=== PATIENT | female | born 1990 | race Caucasian/White ===

== ENCOUNTER 2018-08-10 23:18 | Emergency (ER) | payer MEDICAID ==
--- NOTE | 2018-08-10 23:40 | EDPHY ---
H & P Stated Complaint: Hx of SVT, heart racing, dizzy Time Seen by Provider: 08/10/18 23:40 HPI/ROS: HPI CHIEF COMPLAINT: Increased heart rate. HISTORY OF PRESENT ILLNESS: 28-year-old female, she has a history of tachycardia she has seen a reviewer sales for this and prescribed metoprolol but she does not take the metoprolol due to low blood pressure. She reports tonight around 11:00 a.m. She developed tachycardia very fast heart rate she thinks it was in the 180s. She began to have numbness and tingling bilateral arms, and chest heaviness. This is since resolved. Patient denies any history of DVT or PE, denies any history of cardiovascular disease. It Is noted at triage heart rate was in the 150s. I did go see and evaluate the patient at this time heart rate is currently 108. No chest pain. Past Medical History: Tachycardia. Past Surgical History: No recent surgical history Social History: Denies drugs alcohol tobacco. Family History: Noncontributory ROS REVIEW OF SYSTEMS: 10 Systems were reviewed and negative with the exception of the elements mentioned in the history of present illness. Exam Constitutional triage nursing summary reviewed, vital signs reviewed, awake/ alert. Tachycardic at triage 150s. Eyes normal conjunctivae and sclera, EOMI, PERRLA. HENT normal inspection, atraumatic, moist mucus membranes, no epistaxis, neck supple/ no meningismus, no raccoon eyes. Respiratory clear to auscultation bilaterally, normal breath sounds, no respiratory distress, no wheezing. Cardiovascular rate normal, regular rhythm, no murmur, no edema, distal pulses normal. Gastrointestinal soft, non-tender, no rebound, no guarding, normal bowel sounds, no distension, no pulsatile mass. Genitourinary no CVA tenderness. Musculoskeletal no midline vertebral tenderness, full range of motion, no calf swelling, no tenderness of extremities, no meningismus, good pulses, neurovascularly intact. Skin pink, warm, & dry, no rash, skin atraumatic. Neurologic awake, alert and oriented x 3, AAOx3, moves all 4 extremities equally, motor intact, sensory intact, CN II-XII intact, normal cerebellar, normal vision, normal speech. Psychiatric normal mood/affect. Heme/Lymph/Immune no lymphadenopathy. Differential Diagnosis: Includes but is not limited to in a particular order inappropriate tachycardia, cardiac arrhythmia, dehydration, electrolyte disturbance, SVT, WPW Medical Decision Making: Plan for this patient IV establishment IV fluid bolus , EKG, blood work, electrolytes, troponin, D-dimer, chest x-ray Re-evaluation: EKG interpretation by me on record in [facility] system. Impression time of EKG 2334, sinus tach 115 no signs of acute ischemia no signs of WPW no signs of cardiac arrhythmia. Patient's heart rate 97. Blood pressure 136/76. Pulse ox 95% on room air. Patient is resting comfortably at this time. Re-evaluation 1:46 a.m.. Patient denies any chest pain or shortness of breath. Resting comfortably. Patient's blood work is unremarkable she has a negative D-dimer, negative troponin, EKG that shows no signs of cardiac arrhythmia. Patient's heart rate is resolved with IV fluids and IV Ativan. I do recommend she follows up with her reviewer sales for palpitations. Return precautions discussed with the patient she understands return emergency room if develops chest pain, shortness of breath, fast heart rate or does not feel well. Syncope. Source: Patient - Personal History LMP (Females 10-55): IUD In Place Current Tetanus Diphtheria and Acellular Pertussis (TDAP): No - Medical/Surgical History Hx Asthma: No Hx Chronic Respiratory Disease: No Hx Diabetes: No Hx Cardiac Disease: No Hx Renal Disease: No Hx Cirrhosis: No Hx Alcoholism: No Hx HIV/AIDS: No Hx Splenectomy or Spleen Trauma: No Other PMH: hx SVT - Social History Smoking Status: Never smoked Constitutional: Initial Vital Signs Temperature (C) 36.7 C 08/10/18 23:23 Heart Rate 151 H 08/10/18 23:23 Respiratory Rate 20 08/10/18 23:23 Blood Pressure 184/91 H 08/10/18 23:23 O2 Sat (%) 97 08/10/18 23:23 O2 Delivery Mode Room Air Allergies/Adverse Reactions: No Known Allergies Allergy (Unverified 08/10/18 23:25) Home Medications: Medication Instructions Recorded Metoprolol ER-Hctz 100-12.5 mg 08/10/18 traZODone 08/10/18 Medical Decision Making - Diagnostics Imaging Results: Imaging Impressions Chest X-Ray 08/10/18 23:41 Impression: No acute findings in the chest. - Data Points Laboratory Results: Laboratory Results 08/10/18 23:30 08/10/18 23:30 08/10/18 08/10/18 08/10/18 23:55 23:30 23:30 WBC RBC Hgb Hct MCV MCH MCHC RDW Plt Count MPV Neut % (Auto) Lymph % (Auto) [place] % (Auto) Eos % (Auto) Baso % (Auto) Nucleat RBC Rel Count Absolute Neuts (auto) Absolute Lymphs (auto) Absolute Monos (auto) Absolute Eos (auto) Absolute Basos (auto) Absolute Nucleated RBC Immature Gran % Immature Gran # PT INR APTT D-Dimer Sodium 141 mEq/L mEq/L (135-145) Potassium 3.8 mEq/L mEq/L (3.3-5.0) Chloride 107 mEq/L mEq/L (97-110) Carbon Dioxide 23 mEq/l mEq/l (22-31) Anion Gap 11 mEq/L mEq/L (6-14) BUN 15 mg/dL mg/dL (7-23) Creatinine 0.8 mg/dL mg/dL (0.6-1.0) Estimated GFR > 60 Glucose 149 mg/dL H mg/dL (70-100) Calcium 9.9 mg/dL mg/dL (8.5-10.4) Magnesium 1.7 mg/dL mg/dL (1.6-2.3) Total Bilirubin 0.4 mg/dL mg/dL (0.1-1.4) Conjugated Bilirubin 0.2 mg/dL mg/dL (0.0-0.5) Unconjugated Bilirubin 0.2 mg/dL mg/dL (0.0-1.1) AST 28 IU/L IU/L (14-46) ALT 39 IU/L IU/L (9-52) Alkaline Phosphatase 122 IU/L IU/L (38-126) POC Troponin I 0.00 ng/mL ng/mL (0.00-0.08) Total Protein 7.0 g/dL g/dL (6.3-8.2) Albumin 4.5 g/dL g/dL (3.5-5.0) Beta HCG, Qual NEGATIVE 08/10/18 08/10/18 23:30 23:30 WBC 12.58 10^3/uL H 10^3/uL (3.80-9.50) RBC 5.12 10^6/uL 10^6/uL (4.18-5.33) Hgb 16.0 g/dL g/dL (12.6-16.3) Hct 45.6 % % (38.0-47.0) MCV 89.1 fL fL (81.5-99.8) MCH 31.3 pg pg (27.9-34.1) MCHC 35.1 g/dL g/dL (32.4-36.7) RDW 12.3 % % (11.5-15.2) Plt Count 399 10^3/uL 10^3/uL (150-400) MPV 9.7 fL fL (8.7-11.7) Neut % (Auto) 62.9 % % (39.3-74.2) Lymph % (Auto) 29.5 % % (15.0-45.0) [place] % (Auto) 6.0 % % (4.5-13.0) Eos % (Auto) 0.7 % % (0.6-7.6) Baso % (Auto) 0.5 % % (0.3-1.7) Nucleat RBC Rel Count 0.0 % % (0.0-0.2) Absolute Neuts (auto) 7.92 10^3/uL H 10^3/uL (1.70-6.50) Absolute Lymphs (auto) 3.71 10^3/uL H 10^3/uL (1.00-3.00) Absolute Monos (auto) 0.75 10^3/uL 10^3/uL (0.30-0.80) Absolute Eos (auto) 0.09 10^3/uL 10^3/uL (0.03-0.40) Absolute Basos (auto) 0.06 10^3/uL 10^3/uL (0.02-0.10) Absolute Nucleated RBC 0.00 10^3/uL 10^3/uL (0-0.01) Immature Gran % 0.4 % % (0.0-1.1) Immature Gran # 0.05 10^3/uL 10^3/uL (0.00-0.10) PT 12.9 SEC SEC (12.0-15.0) INR 0.95 (0.83-1.16) APTT 28.2 SEC SEC (23.0-38.0) D-Dimer < 0.27 ug/mLFEU ug/mLFEU (0.00-0.50) Sodium Potassium Chloride Carbon Dioxide Anion Gap BUN Creatinine Estimated GFR Glucose Calcium Magnesium Total Bilirubin Conjugated Bilirubin Unconjugated Bilirubin AST ALT Alkaline Phosphatase POC Troponin I Total Protein Albumin Beta HCG, Qual Medications Given: Discontinued Medications Sodium Chloride (Ns) 1,000 mls @ 0 mls/hr IV EDNOW ONE; Wide Open PRN Reason: Protocol Stop: 08/10/18 23:42 Last Admin: 08/11/18 00:00 Dose: 1,000 mls Lorazepam (Ativan Injection) 0.5 mg IVP EDNOW ONE Stop: 08/11/18 00:32 Last Admin: 08/11/18 00:33 Dose: 0.5 mg Point of Care Test Results: Chemistry 08/10/18 23:55 POC Troponin I 0.00 ng/mL ng/mL (0.00-0.08) Departure - Departure Disposition: Home, Routine, Self-Care Clinical Impression: Tachycardia, Palpitation Condition: Good Instructions: Tachycardia (ED) Additional Instructions: 1. Return emergency room if you have worsening symptoms 2. Follow up with her reviewer sales 3. Stay well-hydrated Referrals: NONE *PRIMARY CARE P,. [Primary Care Provider] - As per Instructions Radha Ferrer MD [Medical Doctor] - As per Instructions
[2018-08-10] MEDS ORDERED: NS 1,000 ML IV ONE (23:41)
[2018-08-10 23:48] LABS: PLATELET COUNT 399 10^3/uL (150-400)
[2018-08-10 23:57] LABS: INR 0.95 (0.83-1.16); PROTIME(PATIENT) 12.9 SEC (12.0-15.0)
[2018-08-11] MEDS ORDERED: LORazepam 2 MG/ML INJ IVP ONE (00:31)
[2018-08-11 01:57] VITALS: BP 108/74
--- NOTE | 2018-08-12 06:16 | CPEKG ---
Test Reason : OPEN Blood Pressure : / mmHG Vent. Rate : 115 BPM Atrial Rate : 115 BPM P-R Int : 127 ms QRS Dur : 084 ms QT Int : 311 ms P-R-T Axes : 057 053 072 degrees QTc Int : 430 ms Sinus tachycardia Atrial premature complex Confirmed by Tom Duncan ([id number]) on 08/12/2018 6:16:09 AM Referred By: Confirmed By:Tom Duncan
== END 2018-08-11 01:55 | disposition home or self-care (01) ==
DX: R00.0 Tachycardia, unspecified (principal); R00.2 Palpitations; E86.9 Volume depletion, unspecified
CPT/HCPCS: 84484-PO; 96374; J2060

== ENCOUNTER 2018-10-02 06:13 | Inpatient (IN) | payer MEDICAID ==
[2018-10-02] MEDS ORDERED: NS 1,000 ML IV ONE ×2 (06:27→09:17)
[2018-10-02] MEDS ORDERED: LORazepam 2 MG/ML INJ IVP ONE (06:27)
--- NOTE | 2018-10-02 06:30 | EDPHY ---
H & P Stated Complaint: SI wants to stabb herself and ETOH Source: Patient - Personal History LMP (Females 10-55): IUD [address] Current Tetanus/Diphtheria Vaccine: No Current Tetanus Diphtheria and Acellular Pertussis (TDAP): No - Medical/Surgical History Hx Asthma: No Hx Chronic Respiratory Disease: No Hx Diabetes: No Hx Cardiac Disease: No Hx Renal Disease: No Hx Cirrhosis: No Hx Alcoholism: No Hx HIV/AIDS: No Hx Splenectomy or Spleen Trauma: No Other PMH: hx SVT - Social History Smoking Status: Current some day smoker Time Seen by Provider: 10/02/18 06:28 HPI/ROS: HPI CHIEF COMPLAINT: Suicide ideation, depression, anxiety HISTORY OF PRESENT ILLNESS: 28-year-old female presents to the emergency room by private vehicle for suicidal ideation and worsening depression. Patient states that she has been suffering from severe depression and a large amount of anxiety recently. She states that she has been feeling very anxious more depressed more flat and is having thoughts of suicide. Her plan will be to either stab herself in the neck or cut her wrist. She does have a mental health history which includes depression, anxiety, PTSD. She has been hospitalized previously. Past Medical History: History of depression, anxiety, PTSD, SVT Past Surgical History: No recent surgery Social History: Alcohol this evening multiple shots of Tequila. Family History: ROS REVIEW OF SYSTEMS: 10 Systems were reviewed and negative with the exception of the elements mentioned in the history of present illness. Exam Constitutional tearful, flat affect, depressed triage nursing summary reviewed , vital signs reviewed, awake/alert. Tachycardic upon arrival heart rate in the 140s. Eyes normal conjunctivae and sclera, EOMI, PERRLA. HENT normal inspection, atraumatic, moist mucus membranes, no epistaxis, neck supple/ no meningismus, no raccoon eyes. Respiratory clear to auscultation bilaterally, normal breath sounds, no respiratory distress, no wheezing. Cardiovascular tachycardia, regular rhythm, no murmur, no edema, distal pulses normal. Gastrointestinal soft, non-tender, no rebound, no guarding, normal bowel sounds, no distension, no pulsatile mass. Genitourinary no CVA tenderness. Musculoskeletal no midline vertebral tenderness, full range of motion, no calf swelling, no tenderness of extremities, no meningismus, good pulses, neurovascularly intact. Skin pink, warm, & dry, no rash, skin atraumatic. Neurologic awake, alert and oriented x 3, AAOx3, moves all 4 extremities equally, motor intact, sensory intact, CN II-XII intact, normal cerebellar, normal vision, normal speech. Psychiatric flat affect, depressed Heme/Lymph/Immune no lymphadenopathy. Differential Diagnosis: Includes but is not limited to in a particular order underlying depression, anxiety, PTSD, suicidal ideation, substance abuse Medical Decision Making: Plan for this patient IV establishment with IV fluid bolus 1 mg IV Ativan for anxiety, EKG due to tachycardia basic blood work, electrolytes, alcohol level, drug screen. Re-evaluation: 0630: Patient placed on M1 hold by myself. 0700AM: Signed over to Dr. Salas 7am shift-change. EKG was performed due to tachycardia time of EKG 6:39 a.m., sinus tach 125 without any acute ischemia. Patient has a history of SVT. This is sinus rhythm. (Tom Duncan) Constitutional: Initial Vital Signs Temperature (C) 37.1 C 10/02/18 06:16 Heart Rate 149 H 10/02/18 06:16 Respiratory Rate 16 10/02/18 06:16 Blood Pressure 154/103 H 10/02/18 06:16 O2 Sat (%) 96 10/02/18 06:16 O2 Delivery Mode Room Air Allergies/Adverse Reactions: No Known Allergies Allergy (Verified 10/02/18 06:19) Home Medications: Medication Instructions Recorded NK [No Known Home Meds] 10/02/18 Medical Decision Making Other Provider: Care assumed at 6:45 a.m. For this patient presents with suicidal ideation. Noted to have initial heart rate of 149. Plan for labs and EKG, screen for psychiatric evaluation. Is on a mental health hold. 725: Labs reviewed, ethanol 221 otherwise unremarkable. Plan for evaluation when not intoxicated. 1205: Patient personally evaluated. She is mildly tachycardic during her ED stay but she tells me that her resting pulse is normally between 115 and 120 and goes up when she gets nervous or anxious. She said she had a complete evaluation including a [employer] admin Dr. Perez who works in in [place], and was told that apart from a resting tachycardia her heart was normal. 2nd EKG performed at this time. Sinus tachycardia. I think that this is likely due to a combination of anxiety and alcohol withdrawal on top of a baseline resting tachycardia which is normal for her. The patient will be transferred to [facility] for [inpatient psychiatric hospital bed] not available at this facility, in stable condition; accepting provider is Jack Manzo. EMTALA form completed. (Yasir Salas) - Data Points Laboratory Results: Laboratory Results 10/02/18 06:35 10/02/18 06:35 10/02/18 10/02/18 10/02/18 09:20 06:45 06:35 WBC RBC Hgb Hct MCV MCH MCHC RDW Plt Count MPV Neut % (Auto) Lymph % (Auto) [place] % (Auto) Eos % (Auto) Baso % (Auto) Nucleat RBC Rel Count Absolute Neuts (auto) Absolute Lymphs (auto) Absolute Monos (auto) Absolute Eos (auto) Absolute Basos (auto) Absolute Nucleated RBC Immature Gran % Immature Gran # PT 14.0 SEC SEC (12.0-15.0) INR 1.06 (0.83-1.16) Sodium Potassium Chloride Carbon Dioxide Anion Gap BUN Creatinine Estimated GFR Glucose Calcium Total Bilirubin Conjugated Bilirubin Unconjugated Bilirubin AST ALT Alkaline Phosphatase Total Protein Albumin Beta HCG, Qual NEGATIVE Salicylates Urine Opiates Screen NEGATIVE (NEGATIVE) Acetaminophen Urine Barbiturates NEGATIVE (NEGATIVE) Ur Phencyclidine Scrn NEGATIVE (NEGATIVE) Ur Amphetamine Screen NEGATIVE (NEGATIVE) U Benzodiazepines Scrn NEGATIVE (NEGATIVE) Urine Cocaine Screen NEGATIVE (NEGATIVE) U Marijuana (THC) Screen NEGATIVE (NEGATIVE) Ethyl Alcohol 10/02/18 10/02/18 06:35 06:35 WBC 8.62 10^3/uL 10^3/uL (3.80-9.50) RBC 5.05 10^6/uL 10^6/uL (4.18-5.33) Hgb 16.1 g/dL g/dL (12.6-16.3) Hct 44.9 % % (38.0-47.0) MCV 88.9 fL fL (81.5-99.8) MCH 31.9 pg pg (27.9-34.1) MCHC 35.9 g/dL g/dL (32.4-36.7) RDW 12.2 % % (11.5-15.2) Plt Count 396 10^3/uL 10^3/uL (150-400) MPV 9.2 fL fL (8.7-11.7) Neut % (Auto) 68.2 % % (39.3-74.2) Lymph % (Auto) 26.3 % % (15.0-45.0) [place] % (Auto) 4.9 % % (4.5-13.0) Eos % (Auto) 0.1 % L % (0.6-7.6) Baso % (Auto) 0.3 % % (0.3-1.7) Nucleat RBC Rel Count 0.0 % % (0.0-0.2) Absolute Neuts (auto) 5.87 10^3/uL 10^3/uL (1.70-6.50) Absolute Lymphs (auto) 2.27 10^3/uL 10^3/uL (1.00-3.00) Absolute Monos (auto) 0.42 10^3/uL 10^3/uL (0.30-0.80) Absolute Eos (auto) 0.01 10^3/uL L 10^3/uL (0.03-0.40) Absolute Basos (auto) 0.03 10^3/uL 10^3/uL (0.02-0.10) Absolute Nucleated RBC 0.00 10^3/uL 10^3/uL (0-0.01) Immature Gran % 0.2 % % (0.0-1.1) Immature Gran # 0.02 10^3/uL 10^3/uL (0.00-0.10) PT INR Sodium 146 mEq/L H mEq/L (135-145) Potassium 3.8 mEq/L mEq/L (3.5-5.2) Chloride 116 mEq/L H mEq/L (97-110) Carbon Dioxide 19 mEq/l L mEq/l (22-31) Anion Gap 11 mEq/L mEq/L (6-14) BUN 6 mg/dL L mg/dL (7-23) Creatinine 0.6 mg/dL mg/dL (0.6-1.0) Estimated GFR > 60 Glucose 111 mg/dL H mg/dL (70-100) Calcium 9.4 mg/dL mg/dL (8.5-10.4) Total Bilirubin 0.6 mg/dL mg/dL (0.1-1.4) Conjugated Bilirubin 0.4 mg/dL mg/dL (0.0-0.5) Unconjugated Bilirubin 0.2 mg/dL mg/dL (0.0-1.1) AST 20 IU/L IU/L (14-46) ALT 25 IU/L IU/L (9-52) Alkaline Phosphatase 107 IU/L IU/L (38-126) Total Protein 7.8 g/dL g/dL (6.3-8.2) Albumin 4.9 g/dL g/dL (3.5-5.0) Beta HCG, Qual Salicylates < 1.0 mg/dL L mg/dL (2.0-20.0) Urine Opiates Screen Acetaminophen < 10 mcg/mL L mcg/mL (10-30) Urine Barbiturates Ur Phencyclidine Scrn Ur Amphetamine Screen U Benzodiazepines Scrn Urine Cocaine Screen U Marijuana (THC) Screen Ethyl Alcohol 221 mg/dL H mg/dL (0-10) Medications Given: Discontinued Medications Acetaminophen (Tylenol) 650 mg PO EDNOW ONE Stop: 10/02/18 09:26 Last Admin: 10/02/18 09:27 Dose: 650 mg Sodium Chloride (Ns) 1,000 mls @ 0 mls/hr IV ONCE ONE PRN Reason: Wide Open Stop: 10/02/18 06:28 Last Admin: 10/02/18 06:38 Dose: 1,000 mls Sodium Chloride (Ns) 1,000 mls @ 0 mls/hr IV ONCE ONE; Wide Open PRN Reason: Protocol Stop: 10/02/18 09:18 Last Admin: 10/02/18 09:28 Dose: 1,000 mls Lorazepam (Ativan Injection) 1 mg IVP ONCE ONE Stop: 10/02/18 06:28 Last Admin: 10/02/18 06:38 Dose: 1 mg Lorazepam (Ativan) 1 mg PO ONCE ONE Stop: 10/02/18 09:14 Last Admin: 10/02/18 09:16 Dose: 1 mg Lorazepam (Ativan) 1 mg PO EDNOW ONE Stop: 10/02/18 11:28 Last Admin: 10/02/18 11:28 Dose: 1 mg Nicotine (Nicoderm Cq) 21 mg TD EDNOW ONE Stop: 10/02/18 09:29 Last Admin: 10/02/18 09:30 Dose: 21 mg Departure - Departure Disposition: [facility] IP Clinical Impression: Depression Qualifiers: Depression Type: unspecified Qualified Code(s): F32.9 - Major depressive disorder, single episode, unspecified Alcohol intoxication Qualifiers: Complication of substance-induced condition: uncomplicated Qualified Code(s): F10.920 - Alcohol use, unspecified with intoxication, uncomplicated Condition: Good Instructions: Alcohol Intoxication (ED), Suicide Prevention (ED) Referrals: [facility],. [Clinic] - As per Instructions
[2018-10-02 07:02] LABS: PLATELET COUNT 396 10^3/uL (150-400)
--- NOTE | 2018-10-02 07:08 | CPEKG ---
Test Reason : OPEN Blood Pressure : / mmHG Vent. Rate : 125 BPM Atrial Rate : 125 BPM P-R Int : 143 ms QRS Dur : 086 ms QT Int : 327 ms P-R-T Axes : 049 042 030 degrees QTc Int : 472 ms Sinus tachycardia Confirmed by Yasir Salas ([id number]) on 10/02/2018 7:08:19 AM Referred By: Confirmed By:Yasir Salas
[2018-10-02 07:26] LABS: INR 1.06 (0.83-1.16)
[2018-10-02] MEDS ORDERED: LORazepam 1 MG TAB PO ONE ×2 (09:13→11:27)
[2018-10-02] MEDS ORDERED: ACETAMINOPHEN 325 MG TAB PO ONE (09:25)
[2018-10-02] MEDS ORDERED: NICOTINE 21 MG/24 HR PATCH TD ONE (09:28)
--- NOTE | 2018-10-02 12:21 | CPEKG ---
Test Reason : OPEN Blood Pressure : / mmHG Vent. Rate : 142 BPM Atrial Rate : 142 BPM P-R Int : 093 ms QRS Dur : 084 ms QT Int : 367 ms P-R-T Axes : 068 046 174 degrees QTc Int : 564 ms Sinus tachycardia Prolonged QT interval Confirmed by Yasir Salas ([id number]) on 10/02/2018 12:21:26 PM Referred By: Confirmed By:Yasir Salas
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
--- NOTE | 2018-10-02 13:10 | ASMTTCLDSP ---
TLC Discharge Disposition Disposition: Answers: Admit Disposition Notes: Notes: Admit 3N. Discharge Concerns/Recommendations: Notes: In consultation with [facility] ED physician, Yasir Salas MD and on-call advanced nurse practitioner, Jack Manzo APN, both concurred that pt appears to meet 27-65 criteria requiring psychiatric hospitalization as pt appears to be at risk of harm to self due to a mental illness condition. Pt was given the 3N prohibited belongings list while in the ED. Was patient given the Answers: Yes Inpatient Behavioral Health Prohibited Belongings List while in the ED? For inpatient Jack Manzo APN admission, the following psychiatrist agreed to accept patient for admission to Behavioral Health ([facility]): Type of Hold: Answers: M1/72-hour Hold Hold initiated by: Answers: ED Physician Date Signed: 10/02/2018 01:09 PM Electronically Signed By:Ashwin King
--- NOTE | 2018-10-02 13:26 | GCON ---
DATE OF CONSULTATION: 10/02/2018 HISTORY OF PRESENT ILLNESS: The patient is a pleasant 28-year-old female with history of depression, as well as sinus tach, who presents with suicidality. She had a plan to either stab herself in the neck or cut her wrists. She has been hospitalized for suicidality before. She denies recent fever, chills, cough, sputum, nausea, vomiting, diarrhea. She has had some headach es. She has a history of sinus tach and has been evaluated by a clinical genetics laboratory chief and started on metoprol ol, which she does not take. Notable labs in the emergency department include a normal hematocrit. Labs suggest euvolemia. She i s not . There is no TSH. Tox screen is notable for an alcohol level of 221. No stimulants. REVIEW OF SYSTEMS: Complete 10-point review of systems conducted, negative, except as noted in the H PI. PAST MEDICAL HISTORY: Depression. SOCIAL HISTORY: No tobacco, intermittent alcohol. FAMILY HISTORY: Notable for heart problems. PHYSICAL EXAMINATION: VITAL SIGNS: Temperature 37.1, blood pressure 154/103, now 101/61, pulse in t he one-teens to 130s, breathing 16 times a minute, 96% on room air. GENERAL: No acute distress. HE ENT: Sclerae anicteric. Oropharynx clear. Mucous membranes are moist. NECK: Supple, without lymp hadenopathy or JVD. LUNGS: Clear to auscultation bilaterally. HEART: S1, S2. ABDOMEN: Soft, non tender, nondistended. LOWER EXTREMITIES: Without edema. Calves are nontender. SKIN: Without rash . NEUROLOGIC: Exam is nonfocal. EKG interpreted by me (there are 2 of them), show sinus tach at 125, with normal axis and intervals. There are no ischemic changes, no early repolarization, is definitely sinus. I have discussed the case with Dr. Tom Duncan. ASSESSMENT/PLAN: A 28-year-old female with suicidality and tachycardia. 1. Tachycardia. She likely has syndrome of inappropriate sinus tachycardia. I will check a TSH for completeness sake. Otherwise, would recommend no further workup. I suspect it may be situational a s well. 2. Suicidality. Management per Behavioral Health. 3. Alcohol intoxication. The patient describes intermittent alcohol use. She does not appear to be at risk for withdrawal. 4. Hypertension. This is present on admission, normalized. 5. Disposition: To [facility]. /[id number]/MODL
[2018-10-02] MEDS ORDERED: NICOTINE POLACRILEX 2 MG GUM B PRN (16:05)
[2018-10-02] MEDS ORDERED: MAG HYDROX/AL HYDROX/SIMETH 30 ML UDCUP PO PRN (16:05)
[2018-10-02] MEDS: ACETAMINOPHEN 325 MG TAB PO PRN (16:28)
[2018-10-02] MEDS: LORazepam 1 MG TAB PO PRN ×2 (16:29→21:55)
[2018-10-03] MEDS: ACETAMINOPHEN 325 MG TAB PO PRN ×3 (05:41→19:56)
[2018-10-03] MEDS: LORazepam 1 MG TAB PO PRN ×3 (05:41→21:25)
--- NOTE | 2018-10-03 06:21 | ASMTBHMTP ---
Master Treatment Plan Master Treatment Plan Answers: Depressed Mood with for: Suicidal Ideation Date: 10/02/2018 Diagnosis on Admission: Major Depression Disorder, Recurrent, Severe 296.33 (F33.2) Expected length of stay: 3-5 days Reason for admission: Notes: Per Report: Pt is a 28 yo, single, not employed, female with reported history of ADD, depression and anxiety, initially self-presented to [facility] ED on a voluntary basis for above chief complaint and was placed on an M1 hold by ED provider which noted: Patient here with suicidal ideation, depression, substance abuse. Patient with severe depression not on meds, wants to kill herself. Pt reported having learning challenges as a young child and later formally diagnosed as ADD during high school and had been tried on Ritalin, Vyvanse, and Adderall. She has not been on any of those medications for a few years. She reported the initial onset of depression beginning around the age of 16. She reported last feeling more normal was about 3 months ago. Patient's stated presenting problems: Notes: "Anxiety and Suicidal Ideations." Patient's goals for treatment: Notes: "To be stabilized and feel better...to get out of the house more and live everyday." Patient's strengths: Notes: I don't really have any Identify supports outside of hospital: Notes: my live-in boyfriend Discharge criteria: Notes: Suicidal Ideation will resolve and patient will have a plan to safely manage recurrent suicidal ideation. Initial disposition plan/considerations: Notes: Return to my apartment and start therapy. Master Treatment Plan Required Signatures Psychiatrist signature: Answers: Psychiatrist: RN on-shift signature: Answers: RN: Patient signature: Answers: Patient: Date Signed: 10/03/2018 06:20 AM Electronically Signed By:Devan Garcia
[2018-10-03] MEDS: FLUoxetine 20 MG CAP PO SCH (08:30)
[2018-10-03] MEDS ORDERED: MAGNESIUM HYDROXIDE 30 ML UDCUP PO SCH (09:00)
[2018-10-03] MEDS ORDERED: MAGNESIUM HYDROXIDE 30 ML UDCUP PO PRN (09:21)
[2018-10-03] MEDS: NICOTINE 21 MG/24 HR PATCH TD SCH (09:48)
--- NOTE | 2018-10-03 10:36 | PDMN ---
Medical Necessity Medical necessity: Pt meets IP criteria as of 10/02/18 per and [facility] B-[id number] ( major depressive disorder, adult: IP); los > 2 mn for suicidality, pt on M1 hold.
--- NOTE | 2018-10-03 12:48 | ASMTBHDC ---
Notes Note: Notes: CC was able to confirm client's tentative out-patient appt with [facility] (date can be changed). Follow up with: [facility]: [facility] [address] [place] [address] [facility] October 09 (10/09/18) at 2:30pm with [facility] (check in on second floor of the above location). Date Signed: 10/03/2018 12:47 PM Electronically Signed By:Devan Garcia
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
[2018-10-03] MEDS ORDERED: LOPERAMIDE HCL 2 MG CAP PO PRN (18:10)
[2018-10-03] MEDS ORDERED: LOPERAMIDE HCL 2 MG CAP PO ONE (18:15)
[2018-10-04] MEDS: ACETAMINOPHEN 325 MG TAB PO PRN ×4 (01:48→20:55)
[2018-10-04] MEDS: LORazepam 1 MG TAB PO PRN ×2 (03:20→10:31)
[2018-10-04] MEDS: FLUoxetine 20 MG CAP PO SCH (07:35)
[2018-10-04] MEDS: NICOTINE 21 MG/24 HR PATCH TD SCH (07:36)
--- NOTE | 2018-10-04 07:51 | SOAPPROG ---
SOAP Progress Note Assessment/Plan: Assessment: Major Depressive Disorder, Severe, with Anxious Distress. Alcohol Use Disorder , Severe. Improvement noted. (see subjective/objective note). Patient could benefit from continued inpatient hospitalization for crisis stabilization, safety, and medication evaluation. Consider discharge tomorrow if patient is stable and has a safe discharge plan. Plan: 1. Psychotropic medications: After reviewing options, risks, and benefits patient agrees to continue current medications. No medication changes at this time as more time is needed to determine ongoing tolerability and efficacy. Plan is to continue to observe patient for response and side effects from medications, and ongoing monitoring and evaluation. 2. Review with patient informed consent and recommendations for psychotropic medication treatment listed below 3. Labs: no additional labs at this time 4. Therapy: continue milieu and group therapy 5. Further investigation including gathering information from patients relatives and review of past case records to inform treatment plan. 6. Safety/Wellness plan and follow-up outpatient appointments to be established prior to discharge. Next steps are for patient to meet with career guidance technician to plan a safe discharge plan and establish outpatient services for ongoing treatment. 7. Confer with inpatient treatment team regarding treatment plan. 8. Psychosocial stressors addressed through telehealth case manager 9. Legal status: M1 10. Consider discharge on if patient is in stable condition, safe, and has a safe discharge plan. 11. Substance abuse interventions: alcohol PSYCHOTROPIC MEDICATION TREATMENT INFORMED CONSENT and RECOMMENDATIONS: Review nature of condition, diagnosis, and prognosis. Review nature and purpose of psychotropic medication treatment. Review type of psychotropic medications being ordered. Review risk and benefits of psychotropic medication treatment. Review probable length of time patient will need to take medications. Review risk and benefits of not undergoing psychotropic medication treatment. Review alternative treatments to psychotropic medications. Review psychotropic medications contraindications, drug-drug interactions, side effects, and importance of reporting any side effects to a psychiatric provider or nurse during inpatient hospitalization, and upon discharge to patients psychiatric outpatient provider, primary care provider, or other health career manager. Review importance of asking a nurse, psychiatric provider, or primary care provider any questions or problems concerning the psychotropic medications. Verify patient understands the information that has been provided, and understands, accepts, and agrees to psychotropic medications. Review patients safety plan and importance of patient to report to staff while hospitalized if patient is ever a danger to self/others, or unable to care for self, and upon discharge, the importance for patient to contact [facility] or 911, or go to the nearest emergency room, if patient is ever a danger to self/others, or unable to care for self. Recommend that upon discharge patient establish medication management treatment with a psychiatric provider, establishes routine therapy appointments, and follow-up with primary care provider. Verify patient understands and agrees to these recommendations. 10/04/18 07:50 Subjective: Following up with patient for evaluation of depression, anxiety, and safety. Patient reports, "Feeing a lot better, not as anxious." Patient expresses the following psychiatric symptoms a little anxious. Patient reports taking medications as prescribed, and describes response to medications as fair. Patient does not report undesirable side effects from the medications, and agrees to continue current medications. Patient describes getting 8 hours of sleep, and reports feeling rested. Objective: Vital Signs Temp Pulse Resp BP Pulse Ox 36.8 C 77 14 134/71 H 98 10/04/18 06:00 10/04/18 06:00 10/04/18 06:00 10/04/18 06:00 10/04/18 06:00 PT 14.0 SEC (12.0-15.0) 10/02/18 06:45 INR 1.06 (0.83-1.16) 10/02/18 06:45 NURSING REPORT: Consulted with nursing for update on patients progress in treatment. Nurses report patient is engaged in treatment, is attending groups, slept 8 hours, expresses the following psychiatric symptoms: anxious, exhibits the following psychiatric symptoms: none, is eating all meals, is agreeable to medications and taking as prescribed with no report of side effects, with no s/ s of EPS/akathisia, and denies SI/HI, denies A/V hallucinations, and denies delusions. MSE: The patient presents casually dressed, with good hygiene, and looks stated age. Patient is sitting, posture is upright, and position is relaxed. Patient appears awake, alert, and responds appropriately and reasonably during interview. Patient is engaged, relates well to interviewer, and emotional facial expression is appropriate to situation and changes appropriately with topic. Patient is cooperative, makes comfortable eye contact, and movements are voluntary, deliberate, coordinated, and smooth and even with no inappropriate movements. Patient makes laryngeal sounds effortlessly and shares conversation appropriately; pace of conversation is appropriate, and stream of talking is fluent; articulation is clear and understandable; word choice is effortless and appropriate for education level; completes sentences, occasionally pausing to think; rate and volume are appropriate for interview and setting. Patient reports mood as anxious. Patients affect is stable with full variable range, congruent with mood, and appropriate to speech and circumstances. Patient has linear and logical thinking, with no loose associations, tangential thought, thought blocking, concrete thinking, or any other signs of formal thought disorder. Patient denies suicidal and homicidal ideation, and denies hallucinations and delusions. Patient appears to be a reliable historian with sound judgement and good insight into current condition. Patient has no apparent dysfunction in recent or remote memory noted , and no evidence of gross cognitive dysfunction noted at any point during the interview. SUBSTANCE ABUSE BRIEF INTERVENTION: Brief intervention regarding the risks of alcohol abuse is provided to patient with goal to reduce the risk of harm that could result from the continued use of alcohol, with the general aim to investigate the problem, raise awareness of problem, develop a solution with the patient, recommend a specific change or activity, and motivate the patient toward change. Assess substance abuse behavior and give supportive advice about harm reduction, recommend a reduction in hazardous/at-risk consumption patterns, and facilitate referrals for additional specialized treatment with healthcare administrator. Intermediate goal is for the patient to quit and attend outpatient substance abuse treatment. Intervention focus on intermediate goals to allow for more immediate success in the treatment process to keep the patient motivated. Review following with patient: Alcohol/Binge Drinking Risks : Short-term: injuries, violence, alcohol poisoning, risky sexual behaviors. Long-term: high blood pressure, stroke, liver disease, digestive problems, cancer, learning and memory problems, depression and anxiety, social problems, and alcohol dependence. OUTPATIENT SUBSTANCE ABUSE TREATMENT: Patient referred to outpatient provider and treatment for continued treatment related to substance abuse. - Time Spent With Patient Time Spent With Patient: 15 minutes, met with patient individually. - Pending Discharge Pending Discharge Within 24 Hours: Yes Pending Discharge Within 48 Hours: No Pending Discharge Date: 10/05/18 Pending Discharge Time: 11:00 ICD10 Worksheet Patient Problems: Problems Problem Status Onset Alcohol intoxication Acute Depression Acute
[2018-10-04] MEDS: IBUPROFEN 600 MG TAB PO PRN ×2 (10:30→20:54)
[2018-10-04] MEDS ORDERED: LORazepam 1 MG TAB PO PRN (11:01)
--- NOTE | 2018-10-04 13:25 | ASMTCMCOM ---
CM Note CM Note Notes: Client participated in treatment team rounds today. Client appears alert, affect appropriate towards situation Client is projected to discharge tomorrow and has a follow up appts on Monday 10/09 with [facility]. Date Signed: 10/04/2018 01:25 PM Electronically Signed By:Devan Garcia
[2018-10-04] MEDS ORDERED: LORazepam 0.5 MG TAB PO PRN ×2 (14:30→15:26)
[2018-10-05] MEDS: NICOTINE 21 MG/24 HR PATCH TD SCH (06:29)
[2018-10-05] MEDS: ACETAMINOPHEN 325 MG TAB PO PRN (06:29)
[2018-10-05 06:53] VITALS: BP 122/61
[2018-10-05] MEDS: FLUoxetine 20 MG CAP PO SCH (08:21)
[2018-10-05] MEDS: IBUPROFEN 600 MG TAB PO PRN (09:39)
--- NOTE | 2018-10-05 12:25 | BDS ---
REASON FOR ADMISSION: From the ED note dated 10/02/2018, patient presented to the emergency room by private vehicle for suicidal ideation and worsening depression. Patient reported a plan to either stab herself in the neck or cut her wrist. The patient was admitted involuntarily on an M1 hold due to being a danger to herself. Patient was admitted for safety, crisis stabilization, and medication evaluation. ADMITTING DIAGNOSES: 1. Major depressive disorder, severe, with anxious distress. 2. Alcohol use disorder, severe. 3. Nicotine dependence. ADMISSION PHYSICAL EXAM: Patient was seen for Internal Medicine consultation on 10/02/2018, for medical clearance for inpatient psychiatric hospitalization and treatment. Patient was medically cleared for inpatient psychiatric hospitalization and treatment. For further details, please refer to consultation note dated 10/02/2018. ADMISSION LABS: 1. CBC within normal limits, except eosinophils were low at 0.1, absolute eosinophils were low at 0.01. 2. Coagulation: PT and INR within normal limits. 3. BMP within normal limits, except sodium was elevated at 146, chloride was elevated at 116, carbon dioxide was low at 19, BUN was low at 6, and glucose was elevated at 111. 4. Hemoglobin A1c 5.0, and within normal limits. 5. Liver function within normal limits. 6. Lipid panel within normal limits, except LDL cholesterol calculated was low at 47, non-HDL cholesterol was low at 67, HDL cholesterol was elevated at 81, LDL/HDL ratio was low at 0.59. 7. TSH within normal limits at 1.030. 8. Beta HCG qualitative test negative. 9. Toxicology screen negative for all substances screened. Ethyl alcohol level was 221. MAJOR PROCEDURES/TESTS: 1. Electrocardiogram: QTc interval prolonged at 564 msec, and sinus tachycardia. 2. EKG performed on 10/02/2018 at 0639: Sinus tachycardia and QTc interval was 472 msec. 3. EKG repeated on 10/02/2018, at 1214: QTc interval was 564 msec, so prolonged QT interval and sinus tachycardia. HOSPITAL COURSE: The most prominent symptoms and behaviors while patient was here were reports of severe anxiety and depression. Treatment modalities utilized were milieu and group therapy. After reviewing options, risks, and benefits of psychotropic medications patient agreed to trial of Prozac 20 mg po QD. Patient has improved considerably with no signs of psychiatric symptoms and no psychiatric symptoms expressed at time of discharge. Patient reports she has improved since admission, states to be in stable condition, feels safe to discharge, and she contracts for safety. Patient's response to treatment was good. There were no adverse or unexpected results of treatment. Patient was safe throughout her stay, active in treatment, engaged in groups, and was appropriate with staff and other patients. Patient met with the treatment team prior to discharge to assess readiness to discharge and review discharge plan the treatment team consensus is the patient is in stable condition, has a safe discharge plan, and is ready to discharge today. CONDITION AT DISCHARGE: Patient is in stable condition and is no longer a danger to self or others, and is not gravely disabled due to mental illness. Patient is no longer in need of inpatient level of care, and can be safely and effectively treated within the community. The patients level of risk at time of discharge is low. MSE: The patient is casually dressed and with good hygiene , and looks stated age. Patient is sitting, posture is upright, and position is relaxed. Patient appears awake, alert, and responds appropriately and reasonably during interview. Patient is engaged, relates well to interviewer, and emotional facial expression is appropriate to situation and changes appropriately with topic. Patient is cooperative, makes comfortable eye contact , and movements are voluntary, deliberate, coordinated, and smooth and even with no inappropriate movements. Patient makes laryngeal sounds effortlessly and shares conversation appropriately; pace of conversation is appropriate, and stream of talking is fluent; articulation is clear and understandable; word choice is effortless and appropriate for education level; completes sentences, occasionally pausing to think; rate and volume are appropriate for interview and setting. Patient reports mood as euthymic. Patients affect is stable with full variable range, congruent with mood, and appropriate to speech and circumstances. Patient has linear and logical thinking, with no loose associations, tangential thought, thought blocking, concrete thinking, or any other signs of formal thought disorder. Patient denies suicidal and homicidal ideation, and denies hallucinations and delusions. Patient appears to be a reliable historian with sound judgement and good insight into current condition. Patient has no apparent dysfunction in recent or remote memory noted , and no evidence of gross cognitive dysfunction noted at any point during the interview. DISCHARGE DIAGNOSES: 1. Major depressive disorder, severe, with anxious distress. 2. Alcohol use disorder, severe. 3. Nicotine dependence. CURRENT MEDICATIONS: After reviewing options, risks, and benefits with the patient, patient agrees to continue: 1. Prozac 20 mg po QD. Patient requests prescription for this medication at the time of discharge. Prescription for 30 days are provided. Prescription is reviewed with patient at time of discharge to ensure accuracy and patient understanding. DISPOSITION: Patient left hospital independently and voluntarily with her boyfriend and plans to return to live with her boyfriend in [place], [place]. FOLLOWUP: care team coordinator scheduler reports the appropriate outpatient follow-up services have been established and outpatient appointments have been scheduled. The patient received written instructions with times and dates of outpatient follow-up appointments. The following follow-up recommendations were provided to the patient at discharge: Continue psychotropic medications as prescribed and attend appointments as scheduled. Report any side effects to a psychiatric outpatient provider, a primary care provider, or other health child care supervisor. Address any questions or problems concerning the psychotropic medications with a psychiatric outpatient provider, a primary care provider, or other health child care supervisor. Contact [facility] or [facility], or go to the nearest emergency room, if you are ever a danger to yourself/others, or unable to care for yourself. As soon as possible, establish a routine medication management treatment with a psychiatric provider, establish routine therapy appointments, and follow-up with a primary care provider. SUBSTANCE ABUSE BRIEF INTERVENTION: Brief intervention regarding the risks of alcohol abuse is provided to patient with goal to reduce the risk of harm that could result from the continued use of alcohol, with the general aim to investigate the problem, raise awareness of problem, develop a solution with the patient, recommend a specific change or activity, and motivate the patient toward change. Assess substance abuse behavior and give supportive advice about harm reduction, recommend a reduction in hazardous/at-risk consumption patterns, and facilitate referrals for additional specialized treatment with manager home healthcare. Intermediate goal is for the patient to quit and attend outpatient substance abuse treatment. Intervention focus on intermediate goals to allow for more immediate success in the treatment process to keep the patient motivated. Review following with patient: Alcohol/Binge Drinking risks : short-term: injuries, violence, alcohol poisoning, risky sexual behaviors. Long-term: high blood pressure, stroke, liver disease, digestive problems, cancer, learning and memory problems, depression and anxiety, social problems, and alcohol dependence. OUTPATIENT SUBSTANCE ABUSE TREATMENT: Patient referred to outpatient provider and treatment for continued treatment related to substance abuse. LEGAL COURSE: Patient was admitted on an M1 hold for involuntary inpatient psychiatric hospitalization. Patient became voluntary during her stay and patient discharged today independently and voluntarily. ATTITUDE AT TIME OF DISCHARGE: The patients attitude was positive at time of discharge, and patient reports looking forward to discharging today. The patient reports she feels safe to discharge, is no longer a danger to herself or others, is in stable condition, and contracts for safety. Patient states she will continue medications as prescribed, and establish medication management treatment with an outpatient provider after discharge. Patient reports she understands the information that has been provided to her, and she understands, accepts, and agrees to psychotropic medications. Patient describes internal protective factors as the coping skills she has learned while hospitalized here, and she plans to continue to practice these coping skills after discharge. LABORATORY/RADIOLOGY STUDIES: There were no pending labs or studies at time. ADVANCE DIRECTIVES: There were no advance directives on file, and patient was full code during this hospitalization. The following psychotropic medication treatment informed consent and recommendations were provided to the patient at time of discharge. Patient reports she understands, accepts, and agrees to the information that has been provided. PSYCHOTROPIC MEDICATION TREATMENT INFORMED CONSENT and RECOMMENDATIONS: Review nature of condition, diagnosis, and prognosis. Review nature and purpose of psychotropic medication treatment. Review type of psychotropic medications being prescribed. Review risk and benefits of psychotropic medication treatment. Review probable length of time will need to take medications. Review risk and benefits of not undergoing psychotropic medication treatment. Review alternative treatments to psychotropic medications. Review psychotropic medications contraindications, side effects, and importance of reporting any side effects to a psychiatric provider, primary care provider, or other health child care supervisor. Review importance of her asking a psychiatric provider or primary care provider any questions or problems concerning the psychotropic medications. Review importance of reporting to a psychiatric provider, primary care provider, or other health child care supervisor if she plans to or becomes . Review safety plan and the importance to contact [facility] or [facility] , or go to the nearest emergency room, if ever a danger to yourself/others, or unable to care for yourself. Recommend upon discharge to establish routine medication management treatment with a psychiatric provider, establish routine therapy appointments, and follow-up with a primary care provider. Verify patient understands, accepts, and agrees to the information that has been provided. /[id number]/MODL MTDD
== END 2018-10-05 11:38 | disposition home or self-care (01) | DRG 751 ==
LOC: BBEH 14:45
PROVIDERS: ADMIT Registered Nurse; ATTEND Registered Nurse
DX: F33.2 Major depressive disorder, recurrent severe without psychotic features (principal); R45.851 Suicidal ideations; F41.8 Other specified anxiety disorders; F40.00 Agoraphobia, unspecified; F43.10 Post-traumatic stress disorder, unspecified; F10.929 Alcohol use, unspecified with intoxication, unspecified; F17.210 Nicotine dependence, cigarettes, uncomplicated
CPT/HCPCS: 80305; 96374; G0480; J2060

== ENCOUNTER 2018-10-27 17:26 | Emergency (ER) | payer MEDICAID ==
[2018-10-27] MEDS ORDERED: NS 1,000 ML IV ONE ×2 (17:38→19:30)
[2018-10-27] MEDS ORDERED: LORazepam 2 MG/ML INJ IVP ONE ×2 (17:38→19:30)
--- NOTE | 2018-10-27 17:42 | EDPHY ---
H & P Time Seen by Provider: 10/27/18 17:30 HPI/ROS: CHIEF COMPLAINT: Palpitations HISTORY OF PRESENT ILLNESS: The patient is a 28-year-old female with a history of anxiety and anxiety related tachycardia. There is also questionable history of SVT. She states that at one point they are going to give her adenosine but and up treating her with Ativan and fluids instead. She states that she was drinking last night which tends to exacerbate her anxiety the next day. She does have a history previously of alcohol withdrawal but states she has not had this in several years and does not currently drink that often. She does states that her life is very stressful that she suffers from depression and was recently hospitalized for depression. She states that she does not take any medications for anxiety. No abdominal pain. No chest pain. No shortness of breath. She states that she also feels dehydrated probably from drinking yesterday and throwing up this morning. Severity: Moderate Modifying factors: Improved with calming techniques REVIEW OF SYSTEMS: Constitutional: denies: chills, fever, recent illness, recent injury EENTM: denies: blurred vision, double vision, nose congestion Respiratory: denies: cough, shortness of breath Cardiac: See HPI Gastrointestinal/Abdominal: denies: abdominal pain, diarrhea, nausea, vomiting, blood streaked stools Genitourinary: denies: dysuria, frequency, hematuria, pain Musculoskeletal: denies: joint pain, muscle pain Skin: denies: lesions, rash, jaundice, bruising Neurological: denies: headache, numbness, paresthesia, tingling, dizziness, weakness Hematologic/Lymphatic: denies: blood clots, easy bleeding, easy bruising Immunologic/allergic: denies: HIV/AIDS, transplant 10 systems reviewed and negative except as noted EXAM: GENERAL: Well-appearing, well-nourished and in no acute distress. HEAD: Atraumatic, normocephalic. EYES: Pupils equal round and reactive to light, extraocular movements intact, sclera anicteric, conjunctiva are normal. ENT: TMs normal, nares patent, oropharynx clear without exudates. Moist mucous membranes. NECK: Normal range of motion, supple without lymphadenopathy or JVD. LUNGS: Breath sounds clear to auscultation bilaterally and equal. No wheezes rales or rhonchi. HEART: Tachycardic, Regular rate and rhythm without murmurs, rubs or gallops. ABDOMEN: Soft, nontender, normoactive bowel sounds. No guarding, no rebound. No masses appreciated. BACK: No CVA tenderness, no spinal tenderness, step-offs or deformities EXTREMITIES: Normal range of motion, no pitting or edema. No clubbing or cyanosis. NEUROLOGICAL: Cranial nerves II through XII grossly intact. Normal speech, normal gait. 5/5 strength, normal movement in all extremities, normal sensation , normal reflexes PSYCH: Normal mood, normal affect. SKIN: Warm, dry, normal turgor, no visible rashes or lesions. Source: Patient, Family Exam Limitations: No limitations - Medical/Surgical History Hx Asthma: No Hx Chronic Respiratory Disease: No Hx Diabetes: No Hx Cardiac Disease: No Hx Renal Disease: No Hx Cirrhosis: No Hx Alcoholism: No Hx HIV/AIDS: No Hx Splenectomy or Spleen Trauma: No Other PMH: hx SVT - Family History Significant Family History: No pertinent family hx - Social History Smoking Status: Current some day smoker Alcohol Use: None Constitutional: Initial Vital Signs Temperature (C) 37.1 C 10/27/18 18:44 Heart Rate 155 H 10/27/18 18:44 Respiratory Rate 20 10/27/18 18:44 Blood Pressure 134/90 H 10/27/18 18:44 O2 Sat (%) 98 10/27/18 18:44 O2 Delivery Mode Room Air Allergies/Adverse Reactions: quetiapine [From Seroquel] Adverse Reaction (Verified 10/27/18 18:49) trazodone Adverse Reaction (Verified 10/27/18 18:49) Home Medications: Medication Instructions Recorded Acetaminophen [Tylenol 325mg (*)] 650 mg PO Q6H PRN tab 10/05/18 FLUoxetine [Prozac 20 MG (*)] 20 mg PO DAILY 30 Days #30 cap 10/05/18 Ibuprofen [Motrin (*)] 600 mg PO Q6HRS PRN tab 10/05/18 Loperamide HCl [Imodium 2 mg (*)] 2 mg PO Q4H PRN cap 10/05/18 LORazepam [Ativan 1 mg (RX)] 1 mg PO Q6-8PRN PRN #10 tab 10/27/18 Metoprolol Succinate Xr [Toprol Xl 25 mg PO DAILY #30 tab.sr 10/27/18 25 mg (*)] Medical Decision Making - Diagnostics EKG Interpretation: An EKG obtained and was read and documented in trace view. Please see trace view for full reading and report. Sinus rhythm, tachycardic, no acute ischemic changes ED Course/Re-evaluation: I reviewed the patient's previous EKGs at our facility. None of them reveal SVT. All of sinus rhythm and sinus tachycardia 7:30 p.m. patient states she is feeling much better. She still has mild tachycardia around 120. She is wide awake. Will treat with more Ativan and fluids and continue to observe. Remains in sinus rhythm on the monitor. 8:30 p.m. the patient is still tachycardic at 120. Even while asleep. When I ask where she feels she states she feels completely better. She denies recent fevers or infections. No nausea vomiting. No urinary symptoms. No headache. She states that she has had significant difficulty in the past controlling her anxiety and tachycardia. 9:00 p.m. after a small dose of double the patient's heart rate is now in the 90s. She feels well. Her blood pressure is stable. She tells me now that she has been prescribed metoprolol in the past but does not typically take it. She also tells me that her baseline heart rate is in the high 90s low 100s. I will give her prescription for 25 mg a day and have her follow up with Cardiology as well as her psychiatrist. She feels comfortable with this plan and declines further workup or testing. She is eager to go home. Her boyfriend will drive her. Differential Diagnosis: Partial list of the Differential diagnosis considered include but were not limited to; anxiety, SVT, atrial fibrillation and although unlikely based on the history and physical exam, I also considered dehydration, infection, acute coronary disease, PE, intracranial hemorrhage. I discussed these differential diagnoses and the plan with the patient as well as the usual and expected course. The patient understands that the diagnosis is provisional and that in medicine we are not always correct and that further workup is often warranted. Usual and customary warnings were given. All of the patient's questions were answered. The patient was instructed to return to the emergency department should the symptoms at all worsen or return, otherwise to followup with the physician as we discussed. - Data Points Medications Given: Discontinued Medications Sodium Chloride (Ns) 1,000 mls @ 0 mls/hr IV EDNOW ONE; Wide Open PRN Reason: Protocol Stop: 10/27/18 17:39 Last Admin: 10/27/18 18:40 Dose: 1,000 mls Sodium Chloride (Ns) 1,000 mls @ 0 mls/hr IV EDNOW ONE; Wide Open PRN Reason: Protocol Stop: 10/27/18 19:31 Last Admin: 10/27/18 20:14 Dose: 1,000 mls Lorazepam (Ativan Injection) 2 mg IVP EDNOW ONE Stop: 10/27/18 17:39 Last Admin: 10/27/18 18:41 Dose: 2 mg Lorazepam (Ativan Injection) 2 mg IVP EDNOW ONE Stop: 10/27/18 19:31 Last Admin: 10/27/18 20:15 Dose: 2 mg Metoprolol Succinate (Toprol Xl) 25 mg PO EDNOW ONE Stop: 10/27/18 20:39 Last Admin: 10/27/18 20:53 Dose: 25 mg Metoprolol Tartrate (Lopressor Injection) 5 mg IVP EDNOW ONE Stop: 10/27/18 20:39 Last Admin: 10/27/18 20:53 Dose: 5 mg Point of Care Test Results: Chemistry 10/27/18 17:39 POC Sodium 144 mEq/L mEq/L (135-145) POC Potassium 3.3 mEq/L mEq/L (3.3-5.0) POC Chloride 106 mEq/L mEq/L (97-110) POC Total CO2 19 mEq/L L mEq/L (22-31) POC BUN 3 mg/dL L mg/dL (7-23) POC Creatinine 0.5 mg/dL L mg/dL (0.6-1.0) POC Glucose 110 mg/dL H mg/dL (70-100) ISTAT H&H 10/27/18 17:39 POC Hgb 16.3 gm/dL gm/dL (12.6-16.3) POC Hct 48 % H % (38-47) Departure - Departure Disposition: Home, Routine, Self-Care Clinical Impression: Anxiety, Sinus tachycardia Condition: Fair Instructions: Metoprolol (By mouth), Lorazepam (By mouth), Atrial Tachycardia ( ED), Anxiety (ED) Referrals: NONE *PRIMARY CARE P,. [Primary Care Provider] - As per Instructions Lucy Stephens MD [Medical Doctor] - 2-3 days, call for appt. Radha Ferrer MD [Medical Doctor] - 3-4 days, if not improved Prescriptions: LORazepam [Ativan 1 mg (RX)] 1 mg PO Q6-8PRN PRN #10 tab PRN Reason: *Anxiety/Agitation/Insomnia Metoprolol Succinate Xr [Toprol Xl 25 mg (*)] 25 mg PO DAILY #30 tab.sr
--- NOTE | 2018-10-27 17:43 | CPEKG ---
Test Reason : OPEN Blood Pressure : / mmHG Vent. Rate : 141 BPM Atrial Rate : 140 BPM P-R Int : 085 ms QRS Dur : 088 ms QT Int : 291 ms P-R-T Axes : 037 048 003 degrees QTc Int : 446 ms Sinus tachycardia Confirmed by Beka Donis ([id number]) on 10/27/2018 5:42:48 PM Referred By: BEKA DONIS Confirmed By:Bkea Donis
[2018-10-27] MEDS ORDERED: METOPROLOL SUCCINATE XR 25 MG TAB PO ONE (20:38)
[2018-10-27] MEDS ORDERED: METOPROLOL TARTRATE 5 MG/5 ML INJ IVP ONE (20:38)
[2018-10-27 21:01] VITALS: BP 105/69
== END 2018-10-27 21:26 | disposition home or self-care (01) ==
DX: F41.9 Anxiety disorder, unspecified (principal); R00.0 Tachycardia, unspecified; E86.9 Volume depletion, unspecified
CPT/HCPCS: 82435-PO; 82565-PO; 82947-PO; 84132-PO; 84295-PO; 84520-PO; 85014-ER; 96374; J2060

== ENCOUNTER 2018-11-18 13:45 | Emergency (ER) | payer MEDICAID ==
[2018-11-18 14:21] LABS: PLATELET COUNT 386 10^3/uL (150-400)
[2018-11-18] MEDS ORDERED: NS 1,000 ML IV ONE (14:28)
[2018-11-18] MEDS ORDERED: LORazepam 2 MG/ML INJ IVP ONE (14:29)
--- NOTE | 2018-11-18 14:34 | EDPHY ---
HPI/HX/ROS/PE/MDM Narrative: CHIEF COMPLAINT: Fast heart rate HPI: The patient is a 28-year-old female with a history of anxiety and previous ED visits related to anxiety/tachycardia in the setting of recent alcohol use. The patient states that she did drink last night but denies any caffeine or drugs today. She reports feeling like her heart is racing and beating harder than normal for the last 3 hr. She denies chest pain or shortness of breath. She states this is similar to prior episodes. She states she normally takes a beta-wilder for these types of symptoms but did not because she was worried that her systolic blood pressure was too low which was approximately 100. She denies recent illness or trauma. REVIEW OF SYSTEMS: Aside from elements discussed in the HPI, a comprehensive 10-point review of systems was reviewed and is negative. PMH: Includes history of tachycardia. SOCIAL HISTORY: Denies drug abuse. Did drink alcohol last night. PHYSICAL EXAM: General:Patient is alert, in no acute distress. ENT:Eyes are normal to inspection. ENT inspection normal. Neck: Normal inspection. Full range of motion. Respiratory:No respiratory distress. Breath sounds normal bilaterally. Cardiovascular: Mildly tachycardic rate but normal rhythm. Strong peripheral pulses. Normal cap refill. Abdomen:The abdomen is nontender to palpation. There are no peritoneal signs. There are normal bowel sounds. Back: Normal to inspection. No tenderness to palpation. Skin: Normal color. No rash. Warm and dry. Extremities: Normal appearance. Full range of motion. Neuro: Oriented x3. Normal motor function. Normal sensory function. (Dimitry Aaron) 1500: Patient is signed out to me at change of shift by Dr. Aaron. Patient was given Ativan and fluids prior to my arrival. On my exam she was still tachycardic. She is chest pain-free. She denies any palpitations or shortness of breath. She states that she normally takes metoprolol for her palpitations and rapid heartbeat but she was concerned that her blood pressure was too low at home. Her initial blood pressure here was 136 systolic. GENERAL: Well-appearing, in no acute distress, alert. HEENT: Eyes normal to inspection, normal pharynx, no signs of dehydration. NECK: Normal, supple. RESPIRATORY: Clear to auscultation bilaterally, no rales, rhonchi or wheezing. CVS: Regular tachycardia, no rubs, murmurs, or gallops. ABDOMEN: Soft, nontender, nondistended, no organomegaly. BACK: Normal to inspection, no CVA tenderness. SKIN: Normal color, no rash, warm, dry. No pallor. EXTREMITIES: No pedal edema, no calf tenderness, no Homans sign or cords, no joint swelling. NEURO/PSYCH: Alert and oriented, normal mood and affect, normal motor sensory exam. When I was in the room I placed a blood pressure cuff and took a repeat pressure. 117/77. Heart rate of 110. The patient states she normally takes metoprolol to 12.5 mg. She was given this dose in the emergency department. On recheck the patient was feeling much better. Her heart rate was in the low 100. Patient requested discharge home. I discussed the risks and benefits. She will follow up with Cardiology. She felt comfortable with leaving and was given warnings prior to discharge. (Shauna Rojas) - Data Points Laboratory Results: Laboratory Results 11/18/18 14:10 11/18/18 14:10 11/18/18 11/18/18 11/18/18 14:21 14:10 14:10 WBC RBC Hgb Hct MCV MCH MCHC RDW Plt Count MPV Neut % (Auto) Lymph % (Auto) [place] % (Auto) Eos % (Auto) Baso % (Auto) Nucleat RBC Rel Count Absolute Neuts (auto) Absolute Lymphs (auto) Absolute Monos (auto) Absolute Eos (auto) Absolute Basos (auto) Absolute Nucleated RBC Immature Gran % Immature Gran # Sodium Potassium Chloride Carbon Dioxide Anion Gap BUN Creatinine Estimated GFR Glucose Calcium POC Troponin I 0.00 ng/mL ng/mL (0.00-0.08) TSH 1.560 uIU/mL uIU/mL (0.465-4.680) Beta HCG, Qual NEGATIVE 11/18/18 11/18/18 14:10 14:10 WBC 10.13 10^3/uL H 10^3/uL (3.80-9.50) RBC 4.76 10^6/uL 10^6/uL (4.18-5.33) Hgb 15.1 g/dL g/dL (12.6-16.3) Hct 42.6 % % (38.0-47.0) MCV 89.5 fL fL (81.5-99.8) MCH 31.7 pg pg (27.9-34.1) MCHC 35.4 g/dL g/dL (32.4-36.7) RDW 12.5 % % (11.5-15.2) Plt Count 386 10^3/uL 10^3/uL (150-400) MPV 9.2 fL fL (8.7-11.7) Neut % (Auto) 59.2 % % (39.3-74.2) Lymph % (Auto) 29.8 % % (15.0-45.0) [place] % (Auto) 9.8 % % (4.5-13.0) Eos % (Auto) 0.4 % L % (0.6-7.6) Baso % (Auto) 0.5 % % (0.3-1.7) Nucleat RBC Rel Count 0.0 % % (0.0-0.2) Absolute Neuts (auto) 6.00 10^3/uL 10^3/uL (1.70-6.50) Absolute Lymphs (auto) 3.02 10^3/uL H 10^3/uL (1.00-3.00) Absolute Monos (auto) 0.99 10^3/uL H 10^3/uL (0.30-0.80) Absolute Eos (auto) 0.04 10^3/uL 10^3/uL (0.03-0.40) Absolute Basos (auto) 0.05 10^3/uL 10^3/uL (0.02-0.10) Absolute Nucleated RBC 0.00 10^3/uL 10^3/uL (0-0.01) Immature Gran % 0.3 % % (0.0-1.1) Immature Gran # 0.03 10^3/uL 10^3/uL (0.00-0.10) Sodium 136 mEq/L mEq/L (135-145) Potassium 4.1 mEq/L mEq/L (3.5-5.2) Chloride 105 mEq/L mEq/L (97-110) Carbon Dioxide 19 mEq/l L mEq/l (22-31) Anion Gap 12 mEq/L mEq/L (6-14) BUN 8 mg/dL mg/dL (7-23) Creatinine 0.5 mg/dL L mg/dL (0.6-1.0) Estimated GFR > 60 Glucose 94 mg/dL mg/dL (70-100) Calcium 9.4 mg/dL mg/dL (8.5-10.4) POC Troponin I TSH Beta HCG, Qual Medications Given: Discontinued Medications Sodium Chloride (Ns) 1,000 mls @ 0 mls/hr IV EDNOW ONE; Wide Open PRN Reason: Protocol Stop: 11/18/18 14:29 Last Admin: 11/18/18 14:53 Dose: 1,000 mls Lorazepam (Ativan Injection) 1 mg IVP EDNOW ONE Stop: 11/18/18 14:30 Last Admin: 11/18/18 14:53 Dose: 1 mg Metoprolol Tartrate (Lopressor) 12.5 mg PO EDNOW ONE Stop: 11/18/18 15:29 Last Admin: 11/18/18 15:57 Dose: 12.5 mg Point of Care Test Results: Chemistry 11/18/18 14:21 POC Troponin I 0.00 ng/mL ng/mL (0.00-0.08) General Time Seen by Provider: 11/18/18 14:05 Initial Vital Signs: Initial Vital Signs Temperature (C) 36.7 C 11/18/18 13:49 Heart Rate 160 H 11/18/18 13:49 Respiratory Rate 18 11/18/18 13:49 Blood Pressure 136/96 H 11/18/18 13:49 O2 Sat (%) 97 11/18/18 13:49 O2 Delivery Mode Room Air Allergies/Adverse Reactions: quetiapine [From Seroquel] Adverse Reaction (Verified 10/27/18 18:49) trazodone Adverse Reaction (Verified 10/27/18 18:49) Home Medications: Medication Instructions Recorded Gabapentin 11/18/18 Metoprolol Succinate 11/18/18 Prozac 10 MG (*) 11/18/18 Departure - Departure Disposition: Home, Routine, Self-Care Clinical Impression: Tachycardia Condition: Good Instructions: Tachycardia (ED) Additional Instructions: Follow-up with your primary doctor within 72 hours. Return to the Emergency Department for fever, chest pain, shortness of breath, increasing pain or other worsening of condition. 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 Referrals: [facility] [Provider Group] - 2-3 days without fail
--- NOTE | 2018-11-18 14:49 | CPEKG ---
Test Reason : OPEN Blood Pressure : / mmHG Vent. Rate : 121 BPM Atrial Rate : 123 BPM P-R Int : 145 ms QRS Dur : 081 ms QT Int : 311 ms P-R-T Axes : 070 053 043 degrees QTc Int : 442 ms Sinus tachycardia Confirmed by Dimitry Aaron ([id number]) on 11/18/2018 2:48:33 PM Referred By: Dimitry Aaron Confirmed By:Dimitry Aaron
[2018-11-18] MEDS ORDERED: METOPROLOL TARTRATE 25 MG TAB PO ONE (15:28)
[2018-11-18 16:28] VITALS: BP 101/75
== END 2018-11-18 16:26 | disposition home or self-care (01) ==
DX: R00.0 Tachycardia, unspecified (principal); E86.9 Volume depletion, unspecified
CPT/HCPCS: 84484-ER; 96374; J2060

== ENCOUNTER 2018-12-14 16:30 | Emergency (ER) | payer MEDICAID ==
[2018-12-14] MEDS ORDERED: NS 1,000 ML IV ONE ×2 (17:04→18:08)
[2018-12-14] MEDS ORDERED: DIAZEPAM 5 MG/ML 1 ML SYR IVP ONE ×4 (17:05→19:11)
--- NOTE | 2018-12-14 17:10 | EDPHY ---
H & P Time Seen by Provider: 12/14/18 16:48 HPI/ROS: HPI Heart racing. 28-year-old female by private vehicle with boyfriend. This patient reports that she has had a sensation of rapid heart rate at anxiety onset about an hour and a half prior to arrival. She has had the symptoms in the past. She states that she has been under a lot of stress lately with work and her social life. She denies any associated chest pain. She does feel mildly short of breath. No other complaints. ROS: Constitutional: No fever, no chills. As above. Eyes: No discharge. No changes in vision. ENT: No sore throat. No nasal congestion or rhinorrhea. Respiratory: No cough. As above. Cardiac: No chest pain, as above. Gastrointestinal: No abdominal pain, no vomiting, no diarrhea. Genitourinary: No hematuria. No dysuria or increased frequency with urination. Musculoskeletal: No back pain. No neck pain. No myalgias or arthralgias. Skin: No rashes. Neurological: No headache. No focal weakness or altered sensation. Past medical history: Social history: Physical Exam: General Appearance: Alert, she is anxious but not in distress. This patient is responding to questions appropriately and in full sentences. This patient appears well-hydrated and well-nourished. Eyes: Pupils equal and round no pallor or injection. No lid edema, erythema or injection. Respiratory: There are no retractions, lungs are clear to auscultation with good air movement bilaterally. Cardiovascular: Regular rate and rhythm. Tachycardia. No murmur appreciated. Gastrointestinal: Abdomen is soft and nontender, no masses, bowel sounds normal. No focal tenderness at McBurney's point. No Burk sign. Neurological: Motor sensory function is grossly intact. Cranial nerves are normal. Gait is normal. Skin: Warm and dry, no rashes. Musculoskeletal: Neck is supple and nontender. Extremities are symmetrical. All joints range without pain or impingement. Psychiatric: No agitation. No depression. Database: EKG: EKG time is 4:46 p.m.; EKG shows a narrow complex sinus tachycardia with ventricular rate of 137. The DE, QRS, QT intervals are within normal limits. There are no ST-T wave changes indicative of ischemic or injury pattern. No evidence of right heart strain. Interpreted by me. Imaging: Procedures: Emergency department course: Triage vital signs reviewed. She is tachycardic and hypertensive. She she is afebrile. Vital signs are otherwise normal. IV was placed. She was placed on a personnel monitor. She was started on IV normal saline with 1 L to be given over the next hour. EKG obtained and reviewed by myself. I feel her tachycardia is most likely anxiety driven. She will be given 5 mg of IV Valium. This be repeated as needed. 5:50 p.m., the patient was re-evaluated, still tachycardic with narrow complex sinus tachycardia rate of 125 on the monitor. Blood pressure currently 111/72. She was given an additional 5 mg of IV Valium. 6:05 p.m., the patient was re-evaluated. She tells me that her resting heart rate is 105-110. She is currently managed by wood milling machine hand named Dr. Carrington Butt's up in [place]. He has had err on metoprolol but she does not tolerate this medication well secondary to low blood pressures. She thinks she has had her thyroid tested. Currently she feels more relaxed. She has had 1 L of normal saline. Her heart rate is currently in the low 120s. 6:45 p.m., the patient remains significantly tachycardic in the 120s. I am concerned about possible alcohol withdrawal given review of her previous medical history and records. She will be given an additional 5 mg of IV Valium. 7:10 p.m., patient feeling better, heart rate currently 115-120. Patient given an additional 5 mg of IV Valium. 7:50 p.m., patient re-evaluated, resting comfortably at this time. She states she feels relaxed and comfortable. Heart rate is 109-110. This is in the area of her baseline. I did discuss admission with her for observation in the hospital. She does not want to do this. She does feel comfortable going home. She will follow up with her wood milling machine hand within the next 2 days. Return to emergency department precautions were reviewed with her. All of her questions were answered. She was discharged home in good condition with her boyfriend who is driving. Differential Diagnosis: The differential diagnosis on this patient includes but is not limited to anxiety reaction, tachycardia secondary to anxiety, alcohol withdrawal. SVT, pulmonary embolism, acute coronary syndrome, sympathomimetic toxidrome, hyperthyroid syndrome unlikely. This represents a partial list of diagnoses considered. These considerations are based on history, physical exam, past history, reassessment and diagnostic testing. Smoking Status: Current some day smoker Constitutional: Initial Vital Signs Temperature (C) 37.1 C 12/14/18 16:34 Heart Rate 144 H 12/14/18 16:34 Respiratory Rate 18 12/14/18 16:34 Blood Pressure 165/103 H 12/14/18 16:34 O2 Sat (%) 96 12/14/18 16:34 O2 Delivery Mode Room Air Allergies/Adverse Reactions: quetiapine [From Seroquel] Adverse Reaction (Verified 12/14/18 16:33) trazodone Adverse Reaction (Verified 12/14/18 16:33) Home Medications: Medication Instructions Recorded Gabapentin 11/18/18 Metoprolol Succinate 11/18/18 Prozac 10 MG (*) 11/18/18 Zyprexa 12/14/18 Medical Decision Making - Data Points Laboratory Results: Laboratory Results 12/14/18 16:46 12/14/18 16:46 12/14/18 12/14/18 12/14/18 16:46 16:46 16:46 WBC RBC Hgb Hct MCV MCH MCHC RDW Plt Count MPV Neut % (Auto) Lymph % (Auto) Ripley % (Auto) Eos % (Auto) Baso % (Auto) Nucleat RBC Rel Count Absolute Neuts (auto) Absolute Lymphs (auto) Absolute Monos (auto) Absolute Eos (auto) Absolute Basos (auto) Absolute Nucleated RBC Immature Gran % Immature Gran # Sodium 135 mEq/L mEq/L (135-145) Potassium 4.3 mEq/L mEq/L (3.5-5.2) Chloride 101 mEq/L mEq/L (97-110) Carbon Dioxide 23 mEq/l mEq/l (22-31) Anion Gap 11 mEq/L mEq/L (6-14) BUN 12 mg/dL mg/dL (7-23) Creatinine 0.7 mg/dL mg/dL (0.6-1.0) Estimated GFR > 60 Glucose 99 mg/dL mg/dL (70-100) Calcium 9.3 mg/dL mg/dL (8.5-10.4) TSH 2.270 uIU/mL uIU/mL (0.465-4.680) Beta HCG, Qual NEGATIVE 12/14/18 16:46 WBC 11.77 10^3/uL H 10^3/uL (3.80-9.50) RBC 4.92 10^6/uL 10^6/uL (4.18-5.33) Hgb 15.5 g/dL g/dL (12.6-16.3) Hct 43.2 % % (38.0-47.0) MCV 87.8 fL fL (81.5-99.8) MCH 31.5 pg pg (27.9-34.1) MCHC 35.9 g/dL g/dL (32.4-36.7) RDW 12.7 % % (11.5-15.2) Plt Count 451 10^3/uL H 10^3/uL (150-400) MPV 9.1 fL fL (8.7-11.7) Neut % (Auto) 54.5 % % (39.3-74.2) Lymph % (Auto) 36.3 % % (15.0-45.0) Ripley % (Auto) 8.3 % % (4.5-13.0) Eos % (Auto) 0.3 % L % (0.6-7.6) Baso % (Auto) 0.3 % % (0.3-1.7) Nucleat RBC Rel Count 0.0 % % (0.0-0.2) Absolute Neuts (auto) 6.43 10^3/uL 10^3/uL (1.70-6.50) Absolute Lymphs (auto) 4.27 10^3/uL H 10^3/uL (1.00-3.00) Absolute Monos (auto) 0.98 10^3/uL H 10^3/uL (0.30-0.80) Absolute Eos (auto) 0.03 10^3/uL 10^3/uL (0.03-0.40) Absolute Basos (auto) 0.03 10^3/uL 10^3/uL (0.02-0.10) Absolute Nucleated RBC 0.00 10^3/uL 10^3/uL (0-0.01) Immature Gran % 0.3 % % (0.0-1.1) Immature Gran # 0.03 10^3/uL 10^3/uL (0.00-0.10) Sodium Potassium Chloride Carbon Dioxide Anion Gap BUN Creatinine Estimated GFR Glucose Calcium TSH Beta HCG, Qual Medications Given: Discontinued Medications Diazepam (Valium) 5 mg IVP EDNOW ONE Stop: 12/14/18 17:06 Last Admin: 12/14/18 17:08 Dose: 5 mg Diazepam (Valium) 5 mg IVP EDNOW ONE Stop: 12/14/18 17:43 Last Admin: 12/14/18 17:45 Dose: 5 mg Diazepam (Valium) 5 mg IVP EDNOW ONE Stop: 12/14/18 18:50 Last Admin: 12/14/18 18:50 Dose: 5 mg Diazepam (Valium) 5 mg IVP EDNOW ONE Stop: 12/14/18 19:12 Last Admin: 12/14/18 19:18 Dose: 5 mg Sodium Chloride (Ns) 1,000 mls @ 0 mls/hr IV EDNOW ONE; Wide Open PRN Reason: Protocol Stop: 12/14/18 17:05 Last Admin: 12/14/18 17:08 Dose: 1,000 mls Sodium Chloride (Ns) 1,000 mls @ 0 mls/hr IV EDNOW ONE; Wide Open PRN Reason: Protocol Stop: 12/14/18 18:09 Last Admin: 12/14/18 18:13 Dose: 1,000 mls Departure - Departure Disposition: Home, Routine, Self-Care Clinical Impression: Tachycardia, Anxiety Condition: Good Instructions: Tachycardia (ED), Anxiety (ED) Additional Instructions: Read and follow provided instructions. Follow-up with your primary care physician or wood milling machine hand in 1-2 days for re- evaluation. Continue your medication as prescribed. Do not drink alcohol under any circumstances. Return to the emergency department for worsening symptoms, palpitations, lightheadedness, chest pain, shortness of breath or other serious concerns. Referrals: NONE *PRIMARY CARE P,. [Primary Care Provider] - As per Instructions
[2018-12-14 17:13] LABS: PLATELET COUNT 451 10^3/uL (150-400)
[2018-12-14 20:22] VITALS: BP 100/65
--- NOTE | 2018-12-17 15:19 | CPEKG ---
Test Reason : OPEN Blood Pressure : / mmHG Vent. Rate : 137 BPM Atrial Rate : 140 BPM P-R Int : 089 ms QRS Dur : 083 ms QT Int : 300 ms P-R-T Axes : 056 045 016 degrees QTc Int : 453 ms Sinus tachycardia Ventricular premature complex Aberrant complex Confirmed by Dimitry Aaron ([id number]) on 12/17/2018 3:18:42 PM Referred By: PHYSICIAN ED Confirmed By:Dimitry Aaron
== END 2018-12-14 20:22 | disposition home or self-care (01) ==
DX: R00.0 Tachycardia, unspecified (principal); F41.9 Anxiety disorder, unspecified
CPT/HCPCS: 96374; J3360

== ENCOUNTER 2018-12-25 21:17 | Emergency (ER) | payer MEDICAID, OTHER ==
--- NOTE | 2018-12-25 21:35 | EDPHY ---
H & P Smoking Status: Current every day smoker Time Seen by Provider: 12/25/18 21:24 HPI/ROS: CHIEF COMPLAINT: Rapid heart rate HISTORY OF PRESENT ILLNESS: The patient is a 28-year-old female presents emergency department reporting a rapid heart rate. Patient drinks alcohol regularly. She has had alcohol withdrawal before. She noted that she was having alcohol withdrawal symptoms feeling jittery, shaky and a rapid heartbeat. Because of this she drank alcohol prior to coming the emergency department. After she drank alcohol she still had a rapid heart rate. She was concerned so she came to the emergency department. She denies any chest pain. No shortness of breath. No cough. No fever. The patient states she has a history of SVT and she takes metoprolol. She ran out of her metoprolol 1 week ago. This morning she took a leftover prescription of propranolol 10 mg orally. REVIEW OF SYSTEMS: 10 systems were reveiwed and are negative with the exception of the elements mentioned in the history of present illness. (Shauna Rojas) Past Medical/Surgical History: Includes SVT, alcohol abuse Social history: Alcohol abuse. The patient reports using THC. No other drug use. (Shauna Rojas) Physical Exam: 37.3, 126/90, 152, 20, 93% on room air GENERAL: Well-appearing, in no acute distress, alert. HEENT: Eyes normal to inspection, normal pharynx, no signs of dehydration. NECK: Normal, supple. RESPIRATORY: Clear to auscultation bilaterally, no rales, rhonchi or wheezing. CVS: Tachycardia with regular rhythm, no rubs, murmurs, or gallops. ABDOMEN: Soft, nontender, nondistended, no organomegaly. BACK: Normal to inspection, no CVA tenderness. SKIN: Normal color, no rash, warm, dry. No pallor. EXTREMITIES: No pedal edema, no calf tenderness, no Homans sign or cords, no joint swelling. NEURO/PSYCH: Alert and oriented, normal mood and affect, normal motor sensory exam. Slightly slurred speech. Slight tremor. No obvious cranial nerve deficit. (Shauna Rojas) Constitutional: Initial Vital Signs Temperature (C) 37.3 C 12/25/18 21:20 Heart Rate 152 H 12/25/18 21:20 Respiratory Rate 20 12/25/18 21:20 Blood Pressure 126/90 H 12/25/18 21:20 O2 Sat (%) 93 12/25/18 21:20 O2 Delivery Mode Room Air Allergies/Adverse Reactions: quetiapine [From Seroquel] Allergy (Mild, Verified 12/25/18 22:52) trazodone Allergy (Mild, Verified 12/25/18 22:51) Home Medications: Medication Instructions Recorded Gabapentin 11/18/18 Metoprolol Succinate 11/18/18 Prozac 10 MG (*) 11/18/18 Zyprexa 12/14/18 Medical Decision Making ED Course/Re-evaluation: In the emergency department I discussed possible etiologies with the patient. I answered all her questions. IV was placed. Patient was given normal saline 1 L IV for hydration. She was given Ativan per the [facility] protocol. EKG: Sinus tachycardia 132. Normal axis. Normal intervals. No ST or T-wave abnormality. Sodium is 141, potassium 4.4, chloride high at 113, carbon dioxide low at 15, anion gap 13. Creatinine is normal. Negative . [place] [address]. Hematocrit is 40.3. Platelets are 444. Alcohol is 205. The patient continues to be tachycardic. She has no new complaints. She is given a 2nd L of normal saline. Patient is signed out to Dr. Quick at change of shift. (Shauna Rojas) Differential Diagnosis: My differential includes but is not limited to alcohol withdrawal, drug abuse, dehydration, electrolyte abnormality, sugar abnormality, dysrhythmia, SVT ( Shauna Rojas) Other Provider: 2300 care assumed by me from Dr. Rojas pending improvement in her heart rate and alcohol metabolism. I had a long conversation with the patient. I have also reviewed her medical records. She has multiple presentations to this emergency department with tachycardia. She has seen a swing type lathe operator in [place] and is on propranolol. She last took 2 propranolol at 10:00 a.m. This morning. She has been drinking alcohol. She does have a history of chronic alcohol abuse. I believe that her tachycardia is multifactorial including chronic underlying sinus tachycardia as well as alcohol withdrawal. She has received 2 L of IV fluids here. Patient reports she is at her baseline. She is requesting treatment for her alcohol withdrawal. I have given her 25 mg of Librium. She says normally her resting heart rate is 105-110. Multiple presentations in the past here of showed tachycardia higher than this and she is says this is not uncommon for her. I do not think further evaluation is warranted at this time. She would like help with her alcohol use. She is also concerned about alcohol withdrawal symptoms. [facility] Plan will be to discharge with a Librium prepack, return for any concerns. (Alphonse Quick) - Data Points Laboratory Results: Laboratory Results 12/25/18 21:33 12/25/18 21:33 12/25/18 12/25/18 12/25/18 21:55 21:37 21:33 WBC RBC Hgb Hct MCV MCH MCHC RDW Plt Count MPV Neut % (Auto) Lymph % (Auto) Sampson % (Auto) Eos % (Auto) Baso % (Auto) Nucleat RBC Rel Count Absolute Neuts (auto) Absolute Lymphs (auto) Absolute Monos (auto) Absolute Eos (auto) Absolute Basos (auto) Absolute Nucleated RBC Immature Gran % Immature Gran # RBC/WBC/PLT Morphology Platelet Estimate Sodium Potassium Chloride Carbon Dioxide Anion Gap BUN Creatinine Estimated GFR Glucose Calcium POC Troponin I 0.01 ng/mL ng/mL (0.00-0.08) Beta HCG, Qual NEGATIVE Urine Opiates Screen NEGATIVE (NEGATIVE) Urine Barbiturates NEGATIVE (NEGATIVE) Ur Phencyclidine Scrn NEGATIVE (NEGATIVE) Ur Amphetamine Screen NEGATIVE (NEGATIVE) U Benzodiazepines Scrn NEGATIVE (NEGATIVE) Urine Cocaine Screen NEGATIVE (NEGATIVE) U Marijuana (THC) Screen NEGATIVE (NEGATIVE) Ethyl Alcohol 12/25/18 12/25/18 21:33 21:33 WBC 15.81 10^3/uL H 10^3/uL (3.80-9.50) RBC 5.29 10^6/uL 10^6/uL (4.18-5.33) Hgb 16.9 g/dL H g/dL (12.6-16.3) Hct 48.3 % H % (38.0-47.0) MCV 91.3 fL fL (81.5-99.8) MCH 31.9 pg pg (27.9-34.1) MCHC 35.0 g/dL g/dL (32.4-36.7) RDW 12.4 % % (11.5-15.2) Plt Count 444 10^3/uL H 10^3/uL (150-400) MPV 9.3 fL fL (8.7-11.7) Neut % (Auto) 55.4 % % (39.3-74.2) Lymph % (Auto) 36.0 % % (15.0-45.0) Sampson % (Auto) 6.8 % % (4.5-13.0) Eos % (Auto) 0.8 % % (0.6-7.6) Baso % (Auto) 0.4 % % (0.3-1.7) Nucleat RBC Rel Count 0.0 % % (0.0-0.2) Absolute Neuts (auto) 8.76 10^3/uL H 10^3/uL (1.70-6.50) Absolute Lymphs (auto) 5.69 10^3/uL H 10^3/uL (1.00-3.00) Absolute Monos (auto) 1.08 10^3/uL H 10^3/uL (0.30-0.80) Absolute Eos (auto) 0.13 10^3/uL 10^3/uL (0.03-0.40) Absolute Basos (auto) 0.06 10^3/uL 10^3/uL (0.02-0.10) Absolute Nucleated RBC 0.00 10^3/uL 10^3/uL (0-0.01) Immature Gran % 0.6 % % (0.0-1.1) Immature Gran # 0.09 10^3/uL 10^3/uL (0.00-0.10) RBC/WBC/PLT Morphology TNP Platelet Estimate TNP Sodium 141 mEq/L mEq/L (135-145) Potassium 4.4 mEq/L mEq/L (3.5-5.2) Chloride 113 mEq/L H mEq/L (97-110) Carbon Dioxide 15 mEq/l L mEq/l (22-31) Anion Gap 13 mEq/L mEq/L (6-14) BUN 9 mg/dL mg/dL (7-23) Creatinine 0.6 mg/dL mg/dL (0.6-1.0) Estimated GFR > 60 Glucose 115 mg/dL H mg/dL (70-100) Calcium 9.0 mg/dL mg/dL (8.5-10.4) POC Troponin I Beta HCG, Qual Urine Opiates Screen Urine Barbiturates Ur Phencyclidine Scrn Ur Amphetamine Screen U Benzodiazepines Scrn Urine Cocaine Screen U Marijuana (THC) Screen Ethyl Alcohol 205 mg/dL H mg/dL (0-10) Medications Given: Lorazepam (Ativan Injection) 0 mg IVP Q1H PRN; Protocol PRN Reason: Alcohol Withdrawal w/IV access Stop: 12/26/18 09:37 Last Admin: 12/25/18 22:52 Dose: 2 mg Discontinued Medications Chlordiazepoxide HCl (Librium) 25 mg PO EDNOW ONE Stop: 12/25/18 23:54 Last Admin: 12/26/18 00:04 Dose: 25 mg Sodium Chloride (Ns) 1,000 mls @ 0 mls/hr IV EDNOW ONE; Wide Open PRN Reason: Protocol Stop: 12/25/18 22:40 Last Admin: 12/25/18 22:53 Dose: 1,000 mls Nicotine (Nicoderm Cq) 7 mg TD EDNOW ONE Stop: 12/25/18 23:01 Last Admin: 12/25/18 23:01 Dose: 7 mg Point of Care Test Results: Chemistry 12/25/18 21:37 POC Troponin I 0.01 ng/mL ng/mL (0.00-0.08) Departure - Departure Disposition: Home, Routine, Self-Care Clinical Impression: Tachycardia Alcohol intoxication Qualifiers: Complication of substance-induced condition: uncomplicated Qualified Code(s): F10.920 - Alcohol use, unspecified with intoxication, uncomplicated Condition: Good Instructions: Alcohol Intoxication (ED), Tachycardia (ED), Chlordiazepoxide ( By mouth) Additional Instructions: Follow up with Cardiology for further evaluation of her tachycardia. Please continue to seek help with your alcohol use. Ms. Brothers has a chronic underlying tachycardia with a heart rate of 105- 110 which is her baseline. Referrals: [facility] [Provider Group] - 1-2 days without fail
[2018-12-25] MEDS ORDERED: LORazepam 1 MG TAB PO PRN (21:37)
[2018-12-25] MEDS: LORazepam 2 MG/ML INJ IVP PRN ×2 (21:39→22:52)
[2018-12-25 21:46] LABS: PLATELET COUNT 444 10^3/uL (150-400)
[2018-12-25] MEDS ORDERED: NICOTINE 21 MG/24 HR PATCH TD ONE (22:38)
[2018-12-25] MEDS ORDERED: NS 1,000 ML IV ONE (22:39)
[2018-12-25] MEDS ORDERED: NICOTINE 7 MG/24 HR PATCH TD ONE (23:00)
--- NOTE | 2018-12-25 23:13 | CPEKG ---
Test Reason : OPEN Blood Pressure : / mmHG Vent. Rate : 132 BPM Atrial Rate : 133 BPM P-R Int : 150 ms QRS Dur : 079 ms QT Int : 307 ms P-R-T Axes : 045 030 046 degrees QTc Int : 455 ms Sinus tachycardia Confirmed by Shauna Rojas ([id number]) on 12/25/2018 11:12:27 PM Referred By: Shauna Rjoas Confirmed By:Shauna Rojas
[2018-12-25] MEDS ORDERED: chlordiazePOXIDE 25 MG CAP PO ONE (23:53)
[2018-12-26] MEDS ORDERED: CHLORDIAZEPOXIDE 25MG PREPK#6 BTL TAKEHOME ONE (00:46)
[2018-12-26] MEDS ORDERED: NICOTINE 21 MG/24 HR PATCH TD ONE (00:54)
[2018-12-26 01:40] VITALS: BP 105/64
== END 2018-12-26 01:20 | disposition home or self-care (01) ==
DX: R00.0 Tachycardia, unspecified (principal); F10.10 Alcohol abuse, uncomplicated; E86.9 Volume depletion, unspecified
CPT/HCPCS: 80305; 84484-ER; 96374; G0480; J2060

== ENCOUNTER 2019-01-16 22:09 | Emergency (ER) | payer MEDICAID ==
[2019-01-16] MEDS ORDERED: METOPROLOL TARTRATE 25 MG TAB PO ONE (22:33)
[2019-01-16] MEDS ORDERED: chlordiazePOXIDE 25 MG CAP PO ONE (22:33)
--- NOTE | 2019-01-16 22:37 | EDPHY ---
H & P Stated Complaint: fast HR, hx of tachycardia Time Seen by Provider: 01/16/19 22:26 HPI/ROS: Chief Complaint: Palpitations HPI: 28-year-old woman with a history of sinus tachycardia anxiety is presenting with tachycardia which began this evening. Patient normally takes 25 mg of metoprolol in the morning. Her tachycardia is been associated with multifactorial causes including anxiety and some alcohol withdrawal. Patient does admit to drinking 3 beers at 4:00 p.m. This afternoon. Tachycardia began about an hour ago. No chest pain. No shortness of breath. No leg pain or swelling. No recent travel. Symptoms feel similar to her prior episodes of tachycardia. She is currently under increasing stressors. She is feeling depressed. She is not suicidal. She is holley for safety. She has seen a construction flagger for this in the past. I have seen her in the past for this as well. ROS: 10 systems were reviewed and were negative except those elements noted in the HPI. PMH: Tachycardia, anxiety Social History: No smoking, occasional alcohol, no recreational drug use Family History: non-contributory Physical Exam: Gen: Awake, Alert, No Distress HEENT: Nose: no rhinorrhea Eyes: PERRLA, EOMI Mouth: Moist mucosa Neck: Supple, no JVD Chest: nontender, lungs clear to auscultation Heart: S1, S2 normal, tachycardic Abd: Soft, non-tender, no guarding Back: no CVA tenderness, no midline tenderness Ext: no edema, non-tender Skin: no rash Neuro: CN II-XII intact, Sensation grossly intact, Strength 5/5 in bilateral upper and lower extremities - Personal History LMP (Females 10-55): IUD In Place Current Tetanus Diphtheria and Acellular Pertussis (TDAP): Unsure - Medical/Surgical History Hx Asthma: No Hx Chronic Respiratory Disease: No Hx Diabetes: No Hx Cardiac Disease: Yes Hx Renal Disease: No Hx Cirrhosis: No Hx Alcoholism: Yes Hx HIV/AIDS: No Hx Splenectomy or Spleen Trauma: No Other PMH: hx SVT, ETOH ABUSE - Social History Smoking Status: Current every day smoker Constitutional: Initial Vital Signs Temperature (C) 37.4 C 01/16/19 22:13 Heart Rate 159 H 01/16/19 22:13 Respiratory Rate 20 01/16/19 22:13 Blood Pressure 141/99 H 01/16/19 22:13 O2 Sat (%) 98 01/16/19 22:13 O2 Delivery Mode Room Air Allergies/Adverse Reactions: quetiapine [From Seroquel] Allergy (Mild, Verified 01/16/19 22:12) trazodone Allergy (Mild, Verified 01/16/19 22:12) Home Medications: Medication Instructions Recorded Gabapentin 11/18/18 Metoprolol Succinate 11/18/18 Prozac 10 MG (*) 11/18/18 Zyprexa 12/14/18 Medical Decision Making - Diagnostics EKG Interpretation: ECG time 10:19 p.m., sinus tachycardia with a rate of 147, normal axis, normal intervals, no acute ST or T-wave changes. ED Course/Re-evaluation: Patient's heart rate in symptoms have improved after oral metoprolol and Librium. Heart rate is down to 105-110 which is her baseline. I think patient' s tachycardia is a combination her underlying sinus tachycardia, anxiety and alcohol withdrawal. Who advised her to discontinue drinking alcohol. She has no appointment with a new mental health counselor next week. She is depressed but is not suicidal. She is holley for safety. No findings suggesting of acute arrhythmia. No symptoms suggesting PE. She has multiple presentations for similar episodes in the past. Will discharge with follow-up as an outpatient. - Data Points Medications Given: Discontinued Medications Chlordiazepoxide HCl (Librium) 25 mg PO EDNOW ONE Stop: 01/16/19 22:34 Last Admin: 01/16/19 22:38 Dose: 25 mg Metoprolol Tartrate (Lopressor) 25 mg PO EDNOW ONE Stop: 01/16/19 22:34 Last Admin: 01/16/19 22:38 Dose: 25 mg Departure - Departure Disposition: Home, Routine, Self-Care Clinical Impression: Sinus tachycardia Condition: Good Instructions: Tachycardia (ED) Additional Instructions: Follow up with primary care physician in 3-4 days for further evaluation. Return to the emergency department for increasing chest pain, shortness of breath, fainting, or any other concerns. Referrals: Carmencita Nagy MD [Medical Doctor] - As per Instructions
[2019-01-16 23:44] VITALS: BP 107/69
--- NOTE | 2019-01-23 05:42 | CPEKG ---
Test Reason : OPEN Blood Pressure : / mmHG Vent. Rate : 147 BPM Atrial Rate : 147 BPM P-R Int : 123 ms QRS Dur : 082 ms QT Int : 295 ms P-R-T Axes : 061 048 036 degrees QTc Int : 462 ms Sinus tachycardia Multiform ventricular premature complexes Aberrant complex Confirmed by Alphonse Quick ([id number]) on 01/23/2019 5:41:40 AM Referred By: Alphonse Quick Confirmed By:Alphonse Quick
== END 2019-01-16 23:47 | disposition home or self-care (01) ==
DX: R00.0 Tachycardia, unspecified (principal); F17.200 Nicotine dependence, unspecified, uncomplicated

== ENCOUNTER 2019-02-23 13:48 | Emergency (ER) | payer MEDICAID | END 2019-02-23 17:52 | disposition home or self-care (01) ==

== ENCOUNTER 2019-02-24 15:30 | Emergency (ER) | payer MEDICAID | END 2019-02-24 18:34 | disposition home or self-care (01) ==